=== PATIENT | female | born 1960 | race Caucasian/White ===

== ENCOUNTER → 2016-04-28 | Outpatient (CLI) | payer OTHER ==
[~2016-04-28] MED LIST: FRRG PO; IBUP600T44 PO; OXYC-57 PO
--- NOTE | 2016-04-28 13:45 | MAMMOGRAPHY REPORT ---
BILATERAL DIGITAL SCREENING MAMMOGRAM TOMOSYNTHESIS WITH CAD: 04/28/2016 CLINICAL HISTORY: Routine screening. Patient has no complaints. TECHNIQUE: Breast tomosynthesis in addition to standard 2D mammography was performed. Current study was also evaluated with a Computer Aided Detection (CAD) system. COMPARISON: Comparison is made to exams dated: 04/27/2015 mammogram, 04/25/2014 mammogram, 04/24/2013 mammogram, 05/01/2014 mammogram, 04/23/2012 mammogram, and 04/28/2011 mammogram - [facility]. BREAST COMPOSITION: The tissue of both breasts is extremely dense, which lowers the sensitivity of mammography. FINDINGS: No suspicious masses, calcifications, or areas of architectural distortion are noted in e ither breast. There has been no significant interval change compared to prior exams. Bilateral yanna gn-appearing calcifications are not significantly changed. A biopsy marker clip is again noted in t he right central breast. IMPRESSION: ACR BI-RADS CATEGORY 2: BENIGN There is no mammographic evidence of malignancy. A 1 year screening mammogram is recommended. The p atient will receive written notification of the results. Approximately 10% of breast cancers are not detected with mammography. A negative mammographic repor t should not delay biopsy if a clinically suggestive mass is present. Deepa Hou M.D. /:04/28/2016 12:23:32 Regional Forester: Alejandra Jin RT(R)(M), [facility] letter sent: Normal 1/2 BI-RADS Code: ACR BI-RADS Category 2: Benign
== END | disposition home or self-care (01) ==
LOC: C.MAMM 09:21
PROVIDERS: ATTEND Obstetrics & Gynecology
DX: Z12.31 Encounter for screening mammogram for malignant neoplasm of breast (principal)

== ENCOUNTER → 2017-05-01 | Outpatient (CLI) | payer OTHER ==
--- NOTE | 2017-05-01 14:49 | MAMMOGRAPHY REPORT ---
BILATERAL DIGITAL SCREENING MAMMOGRAM TOMOSYNTHESIS WITH CAD: 05/01/2017 CLINICAL HISTORY: Routine screening. Patient has no complaints. TECHNIQUE: Breast tomosynthesis in addition to standard 2D mammography was performed. Current study was also evaluated with a Computer Aided Detection (CAD) system. COMPARISON: Comparison is made to exams dated: 04/28/2016 mammogram, 04/27/2015 mammogram, 04/24/2013 m ammogram, 04/23/2012 mammogram, 04/25/2014 mammogram - [facility], and 04/15/2008. BREAST COMPOSITION: The tissue of both breasts is heterogeneously dense, which may obscure small mas ses. FINDINGS: There is an asymmetry with possible associated architectural distortion in the superior po sterior right breast on the MLO view (tomosynthesis slice 16/57). This is not definitely seen on the CC view but is lateral in location based on the tomosynthesis localizer bar. Therefore, additional spot compression tomosynthesis views and possible ultrasound are recommended. There is a stable nancy-shaped biopsy marker clip in the 12:00 middle one third of the right breast. No other suspicious mass, architectural distortion or cluster of microcalcifications is seen. IMPRESSION: ACR BI-RADS CATEGORY 0: INCOMPLETE EVALUATION: NEED ADDITIONAL IMAGING EVALUATION The asymmetry with possible associated architectural distortion in the superior, posterior right [address] needs additional evaluation. The patient will be called to schedule an appointment. Approximately 10% of breast cancers are not detected with mammography. A negative mammographic report should not delay biopsy if a clinically suggestive mass is present. Essie Avendano M.D. ay/:05/01/2017 13:03:18 Performance Improvement Manager: Chel THOMSON(R)([place]), [facility] letter sent: Addl Imaging 0 BI-RADS Code: ACR BI-RADS Category 0: Incomplete Evaluation: Need Additional Imaging Evaluation
== END | disposition home or self-care (01) ==
LOC: C.MAMM 09:15
PROVIDERS: ATTEND Obstetrics & Gynecology
DX: Z12.31 Encounter for screening mammogram for malignant neoplasm of breast (principal); N64.89 Other specified disorders of breast

== ENCOUNTER → 2017-05-10 | Outpatient (CLI) | payer OTHER ==
--- NOTE | 2017-05-10 15:56 | MAMMOGRAPHY REPORT ---
UNILATERAL RIGHT DIGITAL DIAGNOSTIC MAMMOGRAM TOMOSYNTHESIS: 05/10/2017 CLINICAL HISTORY: Callback from screening mammogram for right breast asymmetry. TECHNIQUE: Breast tomosynthesis in addition to standard 2D mammography was performed. Spot compress ion right MLO 2-D and tomosynthesis images and right X CCL tomosynthesis images were obtained. COMPARISON: Comparison is made to exams dated: 04/28/2016 mammogram, 05/01/2017 mammogram, 04/27/2015 m ammogram, 05/01/2014 mammogram, 04/25/2014 mammogram, and 04/24/2013 mammogram - [facility]. BREAST COMPOSITION: The tissue of the right breast is heterogeneously dense, which may obscure small masses. FINDINGS: The previously described asymmetry with questionable architectural distortion seen within t he right superior breast on the MLO view effaces to a baseline appearance on the additional images. The tissue in this region appears similar to multiple prior exams including the 2013 and 2008 exams, and has the appearance of normal fibroglandular tissue on the tomosynthesis images. No architectural distortion is noted on the additional views. Findings are benign and compatible with normal fibrogl andular tissue. IMPRESSION: ACR BI-RADS CATEGORY 2: BENIGN The right breast asymmetry and questionable architectural distortion effaces on the additional spot c ompression views. Findings are benign and compatible with normal fibroglandular tissue. There is no mammographic evidence of malignancy. A 1 year screening mammogram is recommended. The patient has b een verbally notified of the results. Approximately 10% of breast cancers are not detected with mammography. A negative mammographic report should not delay biopsy if a clinically suggestive mass is present. Deepa Hou M.D. ah/:05/10/2017 10:06:20 Mottler Operator: Pilar THOMSON(R)(M), [facility] letter sent: Normal 1/2 BI-RADS Code: ACR BI-RADS Category 2: Benign
== END | disposition home or self-care (01) ==
LOC: C.MAMM 09:38
PROVIDERS: ATTEND Obstetrics & Gynecology
DX: R92.2 Inconclusive mammogram (principal)